=== PATIENT | female | born 1955 | race Caucasian/White ===

== ENCOUNTER 2017-11-08 10:10 | Day surgery (SDC) | END 2017-11-08 19:29 | disposition home or self-care (01) ==

== ENCOUNTER 2018-04-11 10:04 | Day surgery (SDC) | payer OTHER ==
[2018-04-11] VITALS (13 sets, daily range): BP systolic 119–145; BP diastolic 58–77; PULSE 68–97; RESP 15–28; Ht 154.9 cm; Wt 70.1 kg
[~2018-04-11] VITALS: Ht 154.9 cm; Wt 70.1 kg
[~2018-04-11 10:04] MED LIST: BENA10TA4 PO; CALC1TAB79 PO; CEFAZOLIN 1 GM/50 ML (PMX) 50 ML IVPB ONE; CHOL200073 PO; CYAN500T46 PO; LATA2.5D2 BOTH EYES; LETR2.5T PO; METF500T24 PO; PROP10DR4 BOTH EYES; SIMV20TA PO
[2018-04-11] MEDS ORDERED: LORA10TA3 PO (11:06)
[2018-04-11] MEDS ORDERED: ACETAMINOPHEN 325 MG TAB PO PRN (12:00)
[2018-04-11] MEDS ORDERED: ONDANSETRON 4 MG INJ IV PRN ×2 (12:00→14:00)
[2018-04-11] MEDS ORDERED: HYDROCODONE/APAP (5/325) TAB PO PRN (12:00)
[2018-04-11] MEDS ORDERED: BUPIVACAINE LIPOSOME/PF 266 MG/20 ML VIAL INFIL SCH (12:00)
[2018-04-11] MEDS ORDERED: morphine 2 MG INJ IV PRN (12:00)
--- NOTE | 2018-04-11 12:00 | HPN ---
Date/Time of Note Date/Time of Note DATE: 04/11/18 TIME: 12:00 Interval H&P Admission Note Pt. seen H&P reviewed: No system changes MANUEL SEYMOUR MD Apr 11, 2018 12:00
--- NOTE | 2018-04-11 12:17 | PREAC ---
Date/Time of Note Date/Time of Note DATE: 04/11/18 TIME: 12:16 Anesthesia Eval and Record Evaluation Time Pre-Procedure Interview DATE: 04/11/18 TIME: 12:16 Age 63 Sex female NPO: 8 hrs Preoperative diagnosis left breast ca Planned procedure left breast revision with fat graft and left nipple reconstruction Past Medical History Past Medical History: Includes Cardio: HTN, Dyslipidemia Endo: Diabetes Surgery & Anesthesia Issues No known issue Meds Anticoagulation: No Beta Blsa within 24 hr: No Reason Beta Blas not given: Pt. not on B-Blas Reported Medications Loratadine* (Loratadine*) 10 Mg Tablet, 10 MG PO DAILY, #30 TAB 04/11/18 Cholecalciferol (Vitamin D3) (VITAMIN D-3) 2,000 Unit Capsule, 2000 UNIT PO DAILY, CAP 11/08/17 Simvastatin* (Zocor*) 20 Mg Tablet, 20 MG PO QHS, #30 TAB 11/08/17 Benazepril Hcl* (Benazepril Hcl*) 10 Mg Tablet, 10 MG PO DAILY, #30 TAB 11/08/17 Metformin Hcl* (Metformin Hcl*) 500 Mg Tablet, 500 MG PO WITH BREAKFAST DINNE, #60 TAB 06/21/17 Calcium Carbonate/Vitamin D3 ([place] 500+D Tablet) 1 Each Tablet, 1 EACH PO BID, TAB 06/21/17 Letrozole* (Letrozole*) 2.5 Mg Tablet, 2.5 MG PO DAILY, TAB 06/21/17 Discontinued Reported Medications Propylene Glycol (SYSTANE BALANCE) 10 Ml Drops, 1 DRP BOTH EYES TID, #1 BOTTLE 11/08/17 Latanoprost (Latanoprost) 2.5 Ml Drops, 1 DROP BOTH EYES QHS, #1 BOTTLE 11/08/17 Cyanocobalamin* (Vitamin B12*) 500 Mcg Tab, 1000 MCG PO DAILY, TAB 11/08/17 Current Medications Acetaminophen/ Hydrocodone Bitart ([place] (5/325)) 2 tab Q4H PRN PO .PAIN 4-6; Start 04/11/18 at 12:00 Morphine Sulfate (morphine) 2 mg ONCE PRN IV .SEVERE PAIN 7-10; Start 04/11/18 at 12:00; Stop 04/13/18 at 11:59 Ondansetron HCl (Zofran Inj) 4 mg Q6H PRN IV NAUSEA/VOMITING; Start 04/11/18 at 12:00 Acetaminophen (Tylenol Tab) 325 mg Q4H PRN PO MILD PAIN(1-3)OR ELEVATED TEMP; Start 04/11/18 at 12:00 Meds reviewed: Yes Allergies Coded Allergies: No Known Allergy (Unverified , 04/11/18) Allergies Reviewed: Yes Labs/Studies Labs Reviewed: Reviewed by anesthesiologist Result Diagram: 04/11/18 1123 Laboratory Tests 04/11/18 11:23 test: N/A Studies: ECG, CXR Pre-procedure Exam Last vitals Vital Signs Date Temp Pulse Resp B/P (MAP) Pulse Ox O2 O2 Flow FiO2 Time Delivery Rate 04/11/18 99.2 97 16 135/77 97 Room Air 11:28 (96) Airway: Adequate mouth opening, Adequate thyromental dist Mallampati: Mallampati II Teeth: Normal Lung: Normal Heart: Normal ASA Physical Status ASA physical status: 2 Emergency: None Planned Anesthetic General/MAC: LMA Planned Pain Management Parenteral pain med Pre-operative Attestations Prior to commencing anesthesia and surgery, the patient was re-evaluated, there was verification of: *The patient's identity *The results of appropriate recent lab work and preoperative vital signs *The above evaluation not changing prior to induction *Anesthetic plan, risk benefits, alternative and complications discussed with patient/family; questions answered; patient/family understands, accepts and wishes to proceed. REMA NORWOOD Apr 11, 2018 12:17
[2018-04-11] MEDS ORDERED: PROPOFOL 20 ML ONE (12:37)
--- NOTE | 2018-04-11 12:45 | OPR ---
Date/Time of Note Date/Time of Note DATE: 04/11/18 TIME: 12:39 Operative Report Free Text/Dictation Plastic Surgery Operative Report Preoperative diagnosis: history of breast CA Postoperative diagnosis: same Procedure: left breast revision and nipple reconstruction Surgeon: lisa Malcolm.: WOLFGANG alvarado Anesthesia: gen EBL: min IV fluids: per flow sheet Findings: n/a Complications: none Dispo: home Indications for procedure: 38 yo F presents for left breast revision with fat graft and nipple reconstruction. The risks, benefits, alternatives of performing this procedure was discussed with the patient including the risks of bleeding, infection, wound healing problems, asymmetry, partial or total graft loss, flap loss, need for revision and the patient states that she understands these risks and would like to proceed with the procedure. All questions were answered and no guarantees were given with regards to the outcome of this procedure. Description of procedure: The patient was brought to the operating room [facility] where general anesthesia was induced and she was prepped and draped in usual sterile fashion with ChloraPrep. Preoperatively, in the sitting position, the left breast nipple position was marked to be symmetric with the contralateral side and centered on the breast mound. First, stab incisions were made in the upper and lower umbilicus and then 600 cc of tumescent solution containing 1 L of normal saline with 1 amp of epinephrine and 20 cc of Exparel infiltrated into these sites. 10 cc of the same solution were injected into the planned incision site on the left breast. The incisions were made on the left breast nipple with the 10 blade, and the fla p was then elevated with a 10 blade and the deep subcutaneous tissue. Hemostasis was achieved with electrocautery. The surrounding skin was undermined gently with electrocautery. Next, a 3-0 Vicryl suture was used to close the lateral limbs of the donor site. The 3-0 Vicryl suture was used to close the center of the donor site. Next, the 15 blade was used to de- epithelialized a small crescent of tissue to allow the flap to sit in place on the breast. The 4-0 chromic suture was used to close the limbs of the flap and a 5-0 chromic suture was used to close the top of the flap. The remainder of the skin was closed with 4-0 chromic suture. Attention was then turned to the lower abdomen where the [place] cannulas were used to label aspirate fat. The fat was allowed to decant and was then processed on Telfa. Next, the fat was loaded into syringes and was inserted with small aliquots and multiple passes into the left upper medial breast. Approximately 100 cc were injected. The breasts were inspected and had achieve the desired result and therefore the incisions were closed with 4-0 chromic suture Patient tolerated procedure well, there were no complications, follow-up information and wound care instructions were given Preoperative Diagnosis history of breast CA Postoperative Diagnosis same Operation/Procedure Performed left breast revision, left breast nipple reconstruction Surgeon see signature line [employer] WOLFGANG alvarado Anesthesia Type: general Estimated Blood Loss: minimal Transfusion none Specimen none Grafts/Implants none Complications none Pt Condition Post Procedure: stable Procedure Description see dictation MANUEL SEYMOUR MD Apr 11, 2018 12:45
[2018-04-11] MEDS ORDERED: DEXAMETHASONE 4 MG/ML 5 ML INJ ONE (12:58)
[2018-04-11] MEDS ORDERED: ONDANSETRON 4 MG INJ ONE (12:58)
[2018-04-11] MEDS ORDERED: ROCURONIUM 50 MG INJ ONE (12:58)
[2018-04-11] MEDS ORDERED: CEFAZOLIN 1 GM INJ ONE (12:58)
[2018-04-11] MEDS ORDERED: PHENYLephrine (100 MCG/ML) 5ML SYG ONE (13:10)
[2018-04-11] MEDS ORDERED: SUGAMMADEX SODIUM 200 MG/2 ML VIAL IV ONE (13:30)
--- NOTE | 2018-04-11 13:45 | PAC ---
Date/Time of Note Date/Time of Note DATE: 04/11/18 TIME: 13:44 Post-Anesthesia Notes Post-Anesthesia Note Last documented vital signs Vital Signs Date Temp Pulse Resp B/P (MAP) Pulse Ox O2 O2 Flow FiO2 Time Delivery Rate 04/11/18 99.2 97 16 135/77 97 Room Air 1344 (96) Activity: WNL Respiratory function: WNL Cardiovascular function: WNL Mental status: Baseline Pain reasonably controlled: Yes Hydration appropriate: Yes Nausea/Vomiting absent: Yes REMA NORWOOD Apr 11, 2018 13:45
[2018-04-11] MEDS ORDERED: hydrALAzine 20 MG INJ IV PRN (14:00)
[2018-04-11] MEDS ORDERED: POLYMYXIN/BACITRACIN 1L IRRIG IRR SCH (14:00)
[2018-04-11] MEDS ORDERED: MEPERIDINE 25 MG INJ IV PRN (14:00)
[2018-04-11] MEDS ORDERED: EPINEPHrine 1 MG INJ INJ SCH (14:00)
[2018-04-11] MEDS ORDERED: EPHEDrine SULFATE 50 MG/5 ML SYG IV PRN (14:00)
[2018-04-11] MEDS ORDERED: OXYCODONE/ACETAMINOPHEN (5/325) TAB PO PRN ×2 (14:00)
[2018-04-11] MEDS ORDERED: FENTAnyl 50 MCG/ML VIAL IV PRN ×3 (14:00)
[2018-04-11] MEDS ORDERED: ALBUTEROL 0.083% (NEB) 2.5 MG/3 ML AMP HHN PRN (14:00)
[2018-04-11] MEDS ORDERED: DIPHENHYDRAMINE 50 MG INJ IV PRN (14:00)
[2018-04-11] MEDS ORDERED: HYDROmorphONE 1 MG/5 ML IV SYRINGE IV PRN ×3 (14:00)
[2018-04-11] MEDS ORDERED: GENTAMICIN 80 MG/NS (PMX) 50 ML IVPB SCH (14:00)
[2018-04-11] MEDS ORDERED: LABETALOL HCL 20MG INJ IV PRN (14:00)
[2018-04-11] MEDS ORDERED: METOCLOPRAMIDE 10 MG INJ IV PRN (14:00)
[2018-04-11] MEDS ORDERED: GENTAMICIN 80 MG INJ IRR ONE (14:03)
[2018-04-12] MEDS ORDERED: INFLUENZA VIRUS VACCINE 0.5 ML (DISPENSING) IM* ONE (09:00)
== END 2018-04-11 17:24 | disposition home or self-care (01) ==
LOC: SDS 10:04
PROVIDERS: ATTEND Surgery Plastic and Reconstructive Surgery
DX: N65.1 Disproportion of reconstructed breast (principal); Z85.3 Personal history of malignant neoplasm of breast; E11.9 Type 2 diabetes mellitus without complications; I10 Essential (primary) hypertension; E78.5 Hyperlipidemia, unspecified
CPT/HCPCS: 71045; 80053; 82962; 85025; 85610; 85730; 90686; C9290; J0690; J1100; J1580; J2370; J2405; J3010